=== PATIENT | female | born 1955 | race Caucasian/White ===

== ENCOUNTER 2017-05-11 13:54 | Emergency (ER) | payer BC ==
[~2017-05-11] VITALS: Ht 167.6 cm; Wt 99.1 kg
[2017-05-11 15:02] VITALS: BP 147/84
== END 2017-05-11 15:07 | disposition home or self-care (01) ==
LOC: EME 13:54
DX: H47.10 Unspecified papilledema (principal)
CPT/HCPCS: 99281; 99284